=== PATIENT | female | born 1980 | race Caucasian/White ===

== ENCOUNTER 2016-08-11 13:08 | Emergency (ER) | payer MEDICARE, MEDICAID ==
[~2016-08-11] VITALS: Ht 162.6 cm; Wt 83.5 kg
[~2016-08-11 13:08] MED LIST: ADDERALL 10 MG10 MG PO; BUSPAR5 MG PO; BUSPIRONE HCL7.5 MG PO; FLEXERIL10 MG PO; METHYLDOPA250 MG PO; NORCO 325-5 MG1 TAB PO; PERCOCET 325-51 TAB PO; PRENATAL PLUS I1 TAB PO; PROVENTIL HFA6.7 GM INH; TYLENOL WITH CO1 TAB PO; XANAX1 MG PO; ZANTAC150 MG PO; ZOFRAN ODT4 MG PO
== END 2016-08-11 14:53 | disposition short-term general hospital (02) ==
LOC: ER 13:08
DX: O99.89 Other specified diseases and conditions complicating pregnancy, childbirth and the puerperium (principal); R10.9 Unspecified abdominal pain; Z88.1 Allergy status to other antibiotic agents; Z91.041 Radiographic dye allergy status; Z88.8 Allergy status to other drugs, medicaments and biological substances

== ENCOUNTER 2016-08-30 13:37 | Emergency (ER) | payer MEDICARE, MEDICAID ==
[~2016-08-30] VITALS: Ht 162.6 cm; Wt 79.4 kg
== END 2016-08-30 17:02 | disposition short-term general hospital (02) ==
LOC: ER 13:37
DX: O99.89 Other specified diseases and conditions complicating pregnancy, childbirth and the puerperium (principal); R10.9 Unspecified abdominal pain; Z3A.01 Less than 8 weeks gestation of pregnancy; Z88.1 Allergy status to other antibiotic agents; Z88.8 Allergy status to other drugs, medicaments and biological substances; Z91.041 Radiographic dye allergy status; Z88.5 Allergy status to narcotic agent
CPT/HCPCS: J2405

== ENCOUNTER 2016-09-30 15:28 | Emergency (ER) | payer MEDICARE, MEDICAID ==
[~2016-09-30] VITALS: Ht 162.6 cm; Wt 87.1 kg
== END 2016-09-30 16:18 | disposition short-term general hospital (02) ==
LOC: ER 15:28
DX: O9A.211 Injury, poisoning and certain other consequences of external causes complicating pregnancy, first trimester (principal); S90.31XA Contusion of right foot, initial encounter; Z88.8 Allergy status to other drugs, medicaments and biological substances; Z88.1 Allergy status to other antibiotic agents; Z91.041 Radiographic dye allergy status; Z3A.10 10 weeks gestation of pregnancy; V09.9XXA Pedestrian injured in unspecified transport accident, initial encounter; Y92.410 Unspecified street and highway as the place of occurrence of the external cause

== ENCOUNTER 2016-11-06 15:17 | Emergency (ER) | payer MEDICARE, MEDICAID ==
[~2016-11-06] VITALS: Ht 162.6 cm; Wt 69.9 kg
[2016-11-06] MEDS ORDERED: BUSPAR10 MG PO (16:06)
[2016-11-06] MEDS ORDERED: NORCO 325-5 MG1 TAB PO (16:06)
[2016-11-06] MEDS ORDERED: PRENATAL PLUS I1 TAB PO (16:06)
[2016-11-06] MEDS ORDERED: TYLENOL325 MG PO (16:11)
== END 2016-11-06 15:50 | disposition short-term general hospital (02) ==
LOC: ER 15:17
DX: O21.9 Vomiting of pregnancy, unspecified (principal); R19.7 Diarrhea, unspecified; Z3A.14 14 weeks gestation of pregnancy; Z79.899 Other long term (current) drug therapy